=== PATIENT | female | born 1960 | race Caucasian/White ===

== ENCOUNTER → 2017-09-23 | Outpatient (POV) | payer BC, SELFPAY | PROVIDERS: Family Provider Family Medicine; PCP Family Medicine; Visit Provider Specialist | DX: R20.2 Paresthesia of skin (principal); M79.672 Pain in left foot | CPT/HCPCS: 95886; 95908 ==

== ENCOUNTER → 2017-12-17 08:42 | Outpatient (CLI) | payer BC, SELFPAY ==
[2017-12-17 09:07] LABS: Blood Urea Nitrogen 11 mg/dL (7-18); Creatinine,Serum 0.69 mg/dL (0.55-1.02); Estimated Glomerular Filt Rate 88 ml/min (>60); GFR (African American) 107 ML/MIN (>60)
--- NOTE | 2017-12-17 09:11 | CT_ITS ---
CT abdomen pelvis w con CLINICAL INDICATION: Epigastric pain, mid to lower abdominal pain, history of bowel blockage, evaluate for small bowel obstruction. Right upper quadrant pain ITS.REASON: R/O SBO,RUQ PAIN, ORDERING PHYSICIAN: Tameka Sánchez PATIENT AGE: 57 years COMPARISON: 12 17 16 TECHNIQUE: Axial images obtained with sagittal and coronal reformats. PROCEDURE: Oral Contrast: Redicat IV Contrast: 75 mL's of Isovue-370. FINDINGS: Lung bases are clear. The liver, gallbladder, adrenal glands, and pancreas have an unremarkable appearance. Lobular isodensity is present in the anterior aspect of the spleen at 1.5 x 0.6 cm similar to the previous exam. No renal mass or calculi. No intestinal obstruction or free air. History of appendectomy and hysterectomy. No focal mass or focal inflammatory change apparent. There is a mild amount retained colonic feces. No acute bony anomalies. IMPRESSION: 1. No change with no acute abdominal or pelvic findings. 2. Stable hypoattenuating lesion of the spleen. 3. Mild constipation.
== END ==
PROVIDERS: Family Provider Family Medicine; PCP Family Medicine; Visit Provider Nurse Practitioner Acute Care
DX: R10.11 Right upper quadrant pain (principal); K59.00 Constipation, unspecified
CPT/HCPCS: 36415; 74177; 82565; 84520; Q9967

== ENCOUNTER → 2018-02-21 14:01 | Outpatient (CLI) | payer BC, SELFPAY ==
--- NOTE | 2018-02-21 14:03 | MM_ITS ---
MM Dig screening mamm BI w/CAD CAD Screening COMPARISON: Digital mammograms 02/08/2016 and 03/01/2017 INDICATION: There is a history of breast cancer in a patient maternal cousin diagnosed before menopause. TECHNIQUE: Standard CC and MLO images were obtained. R2 CAD reviewed. FINDINGS: Scattered fibroglandular densities are seen in both breasts. There is a stable asymmetric density outer quadrant right breast at the 9:00 position. There is no suspicious lesion and there are no suspicious microcalcifications. IMPRESSION: Fibrofatty parenchyma with no suspicious lesion seen BI-RADS Category: 2 Benign Finding(s) RECOMMENDED FOLLOW-UP: 1YR - 1 YEAR FOLLOW-UP (A letter has been sent to the patient regarding results of the study.)
--- NOTE | 2018-02-21 14:03 | XR_ITS ---
XR DEXA axial skeleton COMPARISON: None HISTORY: Patient is postmenopausal TECHNIQUE: DEXA scanning lumbar spine and bilateral hips FINDINGS: The average BMD lumbar spine L1-L4 is 1.209 g/sq cm and the T score is 0.2. The total BMD right hip is 0.813 g centimeters square with a T score of -1.5. The right femoral neck is 0.825 g/sq cm the T score of -1.5. The T-scores for the left hip are -1.4 and -1.3 respectively. IMPRESSION: Normal value for the lumbar spine, findings in the osteopenia range for both hips. Consider follow-up study in 2 years
== END ==
PROVIDERS: Family Provider Family Medicine; PCP Family Medicine; Visit Provider Obstetrics & Gynecology
DX: Z12.31 Encounter for screening mammogram for malignant neoplasm of breast (principal); Z78.0 Asymptomatic menopausal state
CPT/HCPCS: 77067; 77080

== ENCOUNTER → 2019-02-25 08:23 | Outpatient (CLI) | payer BC, SELFPAY ==
--- NOTE | 2019-02-25 08:25 | MM_ITS ---
MM Dig screening mamm BI w/CAD CAD Screening COMPARISON: Digital mammograms with CAD 02/21/2018 and 03/01/2017 INDICATION: There is a history of breast cancer patient maternal cousin diagnosed before menopause. TECHNIQUE: Standard CC and MLO images were obtained. R2 CAD reviewed. FINDINGS: Scattered fibroglandular densities are seen in both breasts. Again noted is the asymmetric density 9:00 position right breast which is stable. There is a possible new rounded density left breast only deftly seen on MLO projection. Recommend patient return for spot compression MLO view and cc view and ultrasound may be necessary as well there are no suspicious microcalcifications. IMPRESSION: Fibrofatty parenchyma with possible new density left breast BI-RADS Category: 0 Need Additional Imaging Evaluation RECOMMENDED FOLLOW-UP: IMM - IMMEDIATE FOLLOW-UP RECOMMENDED (A letter has been sent to the patient regarding results of the study.)
== END ==
PROVIDERS: PCP Family Medicine; Visit Provider Obstetrics & Gynecology
DX: Z12.31 Encounter for screening mammogram for malignant neoplasm of breast (principal)
CPT/HCPCS: 77067

== ENCOUNTER → 2019-03-18 14:32 | Outpatient (CLI) | payer BC, SELFPAY ==
--- NOTE | 2019-03-18 14:33 | US_ITS ---
MM Dig mamm DX unilat LT CAD, US breast LT complete INDICATION: Follow-up abnormal mammogram ORDERING PHYSICIAN: Donte Nagel MD PATIENT AGE: 59 years COMPARISON: 02/25/2019 TECHNIQUE: Left mammogram problem-solving views with left breast ultrasound FINDINGS: Average fibroglandular tissue. There is some persistent nodularity noted in the left breast on the spot compression views in the retroareolar region on CC and MLO views measuring approximately 5 mm. Margins are somewhat obscured by overlying breast tissue. Left breast ultrasound: At 2:00 there is a 4 mm hypoechoic nodule with enhanced through transmission of sound. The nodule is somewhat lobulated. Additionally, there is a 7 x 4 mm hypoechoic nodule at 2:00 well with some internal echoes which may only represent an island of fibroglandular tissue. There is good through transmission of sound. No other significant anomalies are evident. IMPRESSION: Probably benign. Persistent nodular opacity in the upper outer left breast at 4 to 5 mm with a complex cyst at this area along with an additional 7 x 4 mm hypoechoic nodule noted on ultrasound which may represent an island of fibroglandular tissue. No suspicious nodules apparent. Recommend 6 month mammographic and sonographic follow-up BI-RADS Category: 3 Probably Benign Finding Short Term Follow-up RECOMMENDED FOLLOW-UP: 6M - 6 MONTH FOLLOW-UP (A letter has been sent to the patient regarding results of the study.)
== END ==
PROVIDERS: PCP Family Medicine; Visit Provider Obstetrics & Gynecology
DX: D49.3 Neoplasm of unspecified behavior of breast (principal)
CPT/HCPCS: 76641; 77065

== ENCOUNTER → 2019-10-09 12:56 | Outpatient (CLI) | payer BC, SELFPAY ==
--- NOTE | 2019-10-09 12:57 | MM_ITS ---
PROCEDURE: MM DIG MAMM DX UNILAT LT CAD CLINICAL INDICATION: abnormal mammogram, six-month follow-up COMPARISON: [facility] MM Dig screening mamm BI w/CAD from 02/21/2018 [facility] MM Dig screening mamm BI w/CAD from 02/25/2019 DIG MAMM-DX UNI-LT from 03/18/2019 TECHNIQUE: Spot-compression MLO and CC views were obtained along with a 90 degree lateral view. FINDINGS: The small asymmetric densities again seen upper outer quadrant unchanged from previous exam. Stable glandular elements are seen in the subareolar region. There is no suspicious lesion and no suspicious microcalcifications. IMPRESSION: Stable benign-appearing density likely asymmetric glandular tissue or possibly a small fibroadenoma as noted on the ultrasound exam, recommended patient return to normal yearly screening mammography BI-RAD Category: 2 Benign Finding(s) FOLLOW-UP: 6M 6Month Follow-up to return to normal yearly screening schedule (A letter has been sent to the patient regarding results of the study.) Dictated by: Dr. Richard Frye MD 10/11/2019 18:[address] Richard Frye MD in [place] 10/11/2019 18:29
--- NOTE | 2019-10-09 12:57 | US_ITS ---
PROCEDURE: US BREAST LT COMPLETE CLINICAL INDICATION: abnormal mammogram COMPARISON: BREASTLT US breast LT complete from 03/18/2019 FINDINGS: Again noted is an oval hypoechoic lesion at the 2 o'clock position outer breast measuring 0.7 by 0.8 x 0.3 cm and again showing internal echoes. This may be a small fibroadenoma, complex cyst or simply an island of glandular tissue. It is stable unchanged from the previous exam. The other smaller hypoechoic lesion at the 2 o'clock position seen near the nipple on the previous exam is not seen on today's study. There are normal appearing nodes in the axilla. IMPRESSION: Able benign-appearing hypoechoic lesion 2 o'clock position outer breast obviously wider than tall and I feel no additional evaluation is indicated and recommend the patient continue with yearly screening mammography Dictated by: Dr. Richard Frye MD 10/11/2019 18:[address] Richard Frye MD in [place] 10/11/2019 18:25
== END ==
PROVIDERS: PCP Family Medicine; Visit Provider Obstetrics & Gynecology
DX: R92.8 Other abnormal and inconclusive findings on diagnostic imaging of breast (principal)
CPT/HCPCS: 76641; 77065

== ENCOUNTER → 2020-04-14 12:12 | Outpatient (CLI) | payer BC, SELFPAY ==
[2020-04-14 13:58] LABS: Coronavirus 19 IgG Antibody Positive (Negative)
[2020-04-14 13:59] LABS: Coronavirus 19 IgM Antibody Positive (Negative)
--- NOTE | 2020-04-14 15:12 | SUR.PREOP ---
Pt. was notified of positive IGM/ IGG blood test. Per Dr. Singh pt. was cancelled for her procedure and the primary was notified. Pt. was instructed to self isolate for 10 days.
== END ==
PROVIDERS: Visit Provider Internal Medicine Gastroenterology
DX: Z01.818 Encounter for other preprocedural examination (principal)
CPT/HCPCS: 36415; 86328

== ENCOUNTER → 2020-04-21 09:00 | Outpatient (CLI) | payer BC, SELFPAY ==
--- NOTE | 2020-04-21 09:12 | XR_ITS ---
PROCEDURE: XR CHEST PORTABLE CLINICAL HISTORY: COVID TESTING COMPARISON: No exams were available for comparison FINDINGS: The cardiomediastinal silhouette and pulmonary vascularity are within normal limits. The lungs are clear without infiltrates, suspicious nodules, or pleural effusions. No acute bony abnormalities. IMPRESSION: No acute findings. Dictated by: Kannan Menon MD 04/21/2020 13:44 Electronically signed by Kannan Menon MD in [place] 04/21/2020 13:44
[2020-04-23 06:08] LABS: Covid-19 Nasal PCR Sendout Lex Not Detected
== END ==
PROVIDERS: PCP Family Medicine; Visit Provider Family Medicine
DX: Z03.818 Encounter for observation for suspected exposure to other biological agents ruled out (principal)
CPT/HCPCS: 71045; U0004

== ENCOUNTER → 2020-06-16 11:15 | Outpatient (CLI) | payer BC, SELFPAY ==
[2020-06-16 13:50] LABS: Coronavirus 19 IgG Antibody Negative (Negative)
[2020-06-16 13:52] LABS: Coronavirus 19 IgM Antibody Positive (Negative)
== END ==
LOC: LAB 11:15 → COVID.OUT 15:10
PROVIDERS: Internal Medicine Gastroenterology; PCP Family Medicine; Visit Provider Family Medicine
DX: Z01.818 Encounter for other preprocedural examination (principal); Z12.11 Encounter for screening for malignant neoplasm of colon
CPT/HCPCS: 36415; 86328; U0003

== ENCOUNTER → 2020-08-18 08:42 | Outpatient (CLI) | payer BC, SELFPAY | PROVIDERS: Visit Provider Internal Medicine Gastroenterology | DX: Z01.89 Encounter for other specified special examinations (principal); Z12.11 Encounter for screening for malignant neoplasm of colon | CPT/HCPCS: U0003 ==

== ENCOUNTER 2020-08-19 07:48 | Day surgery (SDC) | payer BC, SELFPAY ==
[2020-08-11 10:23] VITALS: BMI 23.0
[2020-08-19] VITALS (8 sets, daily range): BP systolic 92–127; BP diastolic 43–58; PULSE 57–76; RESP 16–18; TEMP 36.1–37.3; O2SAT 96–99
--- NOTE | 2020-08-19 08:34 | P.PCN_ITS ---
[facility] Procedure Note Procedure Note:: Colonoscopy Procedure Report: Colonoscopy with cold snare polypectomy Endoscopist: Arsenio Singh II, MD Referring physician: Ángel Puga MD Date of Procedure: August 19, 2020 Equipment: Olympus 180 variable stiffness pediatric colonoscope Sedation: MAC sedation Indication: Mrs. Love is a 60-year-old female who is here for follow-up screening/surveillance colonoscopy secondary to a personal history of adenomatous colon polyps. The patient did have a colonoscopy in October 2016 and had 5 colon polyps (tubular adenomas x5) removed. The patient does state that her paternal grandmother had colon cancer in her 60s. The patient has had prior small bowel obstruction secondary to intraperitoneal adhesions (presumably related to prior surgeries including appendectomy, hysterectomy and ). Her left sided abdominal tenderness has resolved since she is taking the fiber bowel regimen (MiraLAX plus Konsyl mixed together p.o. every morning) which has helped. She reports no abdominal pain, weight loss, change in her bowel habits or rectal bleeding. The patient did have a prior colonoscopy in November 2010 and had a single polyp (tubular adenoma x1) removed. Procedure: Prior to the procedure, a history and physical exam was performed, and patient's medications and allergies were reviewed. The risks, benefits and alternatives of the sedation and procedure were discussed with the patient. All questions were answered and informed consent was obtained. The patient was brought to the procedure room. Patient identification and proposed procedure were verified by the physician and the nurse. The patient was placed in a left lateral decubitus position and the scope was passed under direct vision. Throughout the procedure, the patient's blood pressure, pulse, and oxygen saturations were monitored continuously. The colonoscopy was accomplished without difficulty. The patient tolerated the procedure well. Findings: On digital rectal examination there was normal rectal tone. There were no external hemorrhoids. The colonoscope was introduced through the anal canal to the rectum and advanced to the cecum. The ileocecal valve and appendiceal orifice were identified. The scope was advanced a short distance into the ileum which appeared grossly normal. The scope was then withdrawn into the colon. The cecum, ascending and transverse colon and mucosa were grossly normal. There were 2 diminutive polyps (descending x1 (4 mm) and sigmoid x1 (3 mm)) which were removed via cold snare polypectomy. There were scattered diverticuli throughout the descending and sigmoid colon (LEFT colon). The rectum itself was normal. Upon retroflexion within the rectum there were grade 1-2 internal hemorrhoids. The preparation was excellent throughout with [place] Preparation Score of 9. The cecal time was 12 minutes. Impression: 1. Diminutive colonic polyps x2 2. Left-sided diverticulosis 3. Grade 1-2 internal hemorrhoids Plan: I will follow up the polyp pathology and recommend repeat colonoscopy again in 5-10 years based upon the polyp histology. I would encourage continuation of the fiber bowel regimen (MiraLAX plus Konsyl mixed together) on a long-term daily maintenance basis.
--- NOTE | 2020-08-19 08:37 | P.PN_ITS ---
[facility] Anesthesia Checklist - Patient Identification Patient Identification: Arm Band - Structural Data Admitted From: Home Planned Operative Procedure/s: colonoscopy Consent for Planned Operative Procedure(s) Verified: Yes Verified Documents: Surgical Consent, History and Physical - NPO Status Verified Time NPO: 00:00 - Additional verifications Anesthesia Reactions: No - Airway Assessment C-Spine Mobility Assessed: Yes (mp2) TMJ Mobility Assessed: Yes Dentition: Good Dentition - Neurological Assessment Level of Consciousness: Awake, Alert - Anesthesia Plan Anesthesia Risk discussed: Yes Anesthesia Plan: Verified ASA Class: I Anesthesia Type: MAC [facility] History I have reviewed the patient's past medical history: Yes Medical History: Denies:: Cancer, Diabetes Mellitus Type 1, Diabetes Mellitus Type 2, Internal Pacemaker, MRSA, Seizures *Have you ever received a pneumonia vaccine?: No *Have you received a flu vaccine this season?: Yes Other Medical History: Reports: Other Anesthesia experience/problems:: nac Other Surgeries: Yes: Other. No: Pacemaker Amputation: No Fractures: No - *Social History Last grade of school completed: Advanced degree Smoking Status: Former smoker Alcohol Intake: current Alcohol Intake Frequency:: a few times a month Substance Use Type: denies use *Occupational Status:: employed Housing: house *Travel in the last 8 weeks: None Family Hx:: Coronary Artery Disease, Diabetes, Hypertension
== END 2020-08-19 10:00 | disposition home or self-care (01) ==
LOC: OUTP 07:50
PROVIDERS: PCP Family Medicine; Visit Provider Internal Medicine Gastroenterology
PROC: 0DJD8ZZ Inspection of Lower Intestinal Tract, Via Natural or Artificial Opening Endoscopic (ICD-10-PCS; CPT 45378; principal; 2020-08-19 08:30)
DX: Z12.11 Encounter for screening for malignant neoplasm of colon (principal); Z86.010 Personal history of colon polyps; Z90.49 Acquired absence of other specified parts of digestive tract; K63.5 Polyp of colon; K57.30 Diverticulosis of large intestine without perforation or abscess without bleeding; K64.0 First degree hemorrhoids; Z87.891 Personal history of nicotine dependence; Z83.3 Family history of diabetes mellitus; Z82.49 Family history of ischemic heart disease and other diseases of the circulatory system; Z90.710 Acquired absence of both cervix and uterus; Z79.890 Hormone replacement therapy; Z79.899 Other long term (current) drug therapy
CPT/HCPCS: 45385

== ENCOUNTER → 2020-08-22 16:32 | Outpatient (CLI) | payer BC, SELFPAY ==
--- NOTE | 2020-08-22 16:32 | MM_ITS ---
PROCEDURE: MM DIG SCREENING MAMM BI W/CAD Digital Breast Tomosynthesis Included CLINICAL INDICATION: Routine Screening Mammogram There is a history of breast cancer patient's maternal cousin. The patient currently is on estrogen. COMPARISON: MG [facility] MM Dig screening mamm BI w/CAD from 02/25/2019 MG DIG MAMM-DX UNI-LT from 03/18/2019 MG MM DIG MAMM DX UNILAT LT CAD from 10/09/2019 TECHNIQUE: Standard CC and MLO images and 3D Tomosynthesis was obtained. R2 CAD reviewed. FINDINGS: Mild to moderate scattered fibroglandular densities are seen in both breasts and the findings are bilateral and symmetrical. The possible nodular lesion left breast seen on recent studies is not definitely seen and may have been a cyst which decompressed spontaneously. There is no new or suspicious lesion in either breast and no suspicious microcalcifications. IMPRESSION: Fibrofatty parenchyma with no suspicious lesions seen BI-RAD Category: 1 Negative FOLLOW-UP: 1YR 1 Year Follow-up (A letter has been sent to the patient regarding results of the study.) Dictated by: Dr. Richard Frye MD 08/25/2020 08:39 Dr. Richard Frye MD in [place] 08/25/2020 08:39
== END ==
PROVIDERS: PCP Family Medicine; Visit Provider Obstetrics & Gynecology
DX: Z12.31 Encounter for screening mammogram for malignant neoplasm of breast (principal)
CPT/HCPCS: 77063; 77067

== ENCOUNTER → 2021-08-25 15:58 | Outpatient (CLI) | payer BC, SELFPAY ==
--- NOTE | 2021-08-25 15:58 | MM_ITS ---
PROCEDURE INFORMATION: Exam: MG Bilateral Screening 3D Mammography Exam date and time: 08/25/2021 3:58 PM Age: 61 years old Clinical indication: Encounter for screening mammogram for malignant neoplasm of breast TECHNIQUE: Imaging protocol: Bilateral screening tomosynthesis and 2D mammography including computer-aided detection (CAD) when performed. COMPARISON: 1. MG MM DIG SCREENING MAMM BI W/CAD 08/22/2020 4:35 PM 2. MG MM DIG MAMM DX UNILAT LT CAD 10/09/2019 1:09 PM FINDINGS: MAMMOGRAPHY: Breast composition: The breast tissue is composed of scattered areas of fibroglandular density. Mass: None. Architectural distortion: None. Calcifications: No suspicious calcifications. Asymmetric density: None. Skin thickening: None. Axillary adenopathy: None. IMPRESSION: No mammographic evidence of malignancy. Annual screening is recommended unless otherwise clinically indicated. ASSESSMENT: BI-RADS Category 1: Negative
== END ==
PROVIDERS: PCP Family Medicine; Visit Provider Obstetrics & Gynecology
DX: Z12.31 Encounter for screening mammogram for malignant neoplasm of breast (principal)
CPT/HCPCS: 77063; 77067

== ENCOUNTER → 2021-08-29 12:58 | Outpatient (POV) | payer BC, SELFPAY | PROVIDERS: Visit Provider Dermatology | DX: Z00.00 Encounter for general adult medical examination without abnormal findings (principal) ==

== ENCOUNTER → 2022-09-04 13:03 | Outpatient (CLI) | payer BC, SELFPAY ==
--- NOTE | 2022-09-04 13:03 | MM_ITS ---
PROCEDURE INFORMATION: Exam: MG Bilateral Screening 3D Mammography Exam date and time: 09/04/2022 1:06 PM Age: 62 years old Clinical indication: Screening. A maternal cousin had breast cancer. TECHNIQUE: Imaging protocol: Bilateral Screening tomosynthesis and 2D mammography including computer-aided detection (CAD) when performed. COMPARISON: 1. MG MM DIG SCREENING MAMM BI W/CAD 08/25/2021 4:07 PM 2. MG MM DIG SCREENING MAMM BI W/CAD 08/22/2020 4:35 PM 3. MG MM DIG MAMM DX UNILAT LT CAD 10/09/2019 1:09 PM 4. MG DIG MAMM-DX UNI-LT 03/18/2019 2:41 PM FINDINGS: MAMMOGRAPHY: Breast composition: There are scattered areas of fibroglandular density. Mass: None. Architectural distortion: None. Calcifications: No suspicious calcifications. Asymmetric density: None. Skin thickening: None. Axillary adenopathy: None. IMPRESSION: No mammographic evidence of malignancy. Annual screening is recommended unless otherwise clinically indicated. ASSESSMENT: BI-RADS Category 1: Negative
== END ==
PROVIDERS: PCP Family Medicine; Visit Provider Obstetrics & Gynecology
DX: Z12.31 Encounter for screening mammogram for malignant neoplasm of breast (principal)
CPT/HCPCS: 77063; 77067

== ENCOUNTER → 2023-05-30 09:32 | Outpatient (POV) | payer BC, SELFPAY | PROVIDERS: Visit Provider Specialist/Technologist | DX: Z00.00 Encounter for general adult medical examination without abnormal findings (principal) ==

== ENCOUNTER → 2023-09-20 13:29 | Outpatient (CLI) | payer BC, SELFPAY ==
--- NOTE | 2023-09-20 13:29 | MM_ITS ---
PROCEDURE INFORMATION: Exam: MG Bilateral Screening 3D Mammography Exam date and time: 09/20/2023 1:17 PM Age: 63 years old Clinical indication: Screening. A maternal cousin had breast cancer. TECHNIQUE: Imaging protocol: Bilateral Screening tomosynthesis and 2D mammography including computer-aided detection (CAD) when performed. COMPARISON: 1. MG MM DIG SCREENING MAMM BI W/CAD 09/04/2022 1:06 PM 2. MG MM DIG SCREENING MAMM BI W/CAD 08/25/2021 4:07 PM 3. MG MM DIG SCREENING MAMM BI W/CAD 08/22/2020 4:35 PM 4. MG MM DIG MAMM DX UNILAT LT CAD 10/09/2019 1:09 PM FINDINGS: MAMMOGRAPHY: Breast composition: There are scattered areas of fibroglandular density. Mass: No suspicious mass. Architectural distortion: None. Calcifications: No suspicious calcifications. Asymmetric density: None. Skin thickening: None. Axillary adenopathy: None. IMPRESSION: No mammographic evidence of malignancy. Annual screening is recommended unless otherwise clinically indicated. ASSESSMENT: BI-RADS Category 1: Negative
== END ==
PROVIDERS: PCP Family Medicine; Visit Provider Obstetrics & Gynecology
DX: Z12.31 Encounter for screening mammogram for malignant neoplasm of breast (principal)
CPT/HCPCS: 77063; 77067

== ENCOUNTER 2024-11-03 07:52 | Outpatient (CLI) | payer BC, SELFPAY ==
--- NOTE | 2024-11-03 07:53 | MM_ITS ---
PROCEDURE INFORMATION: Exam: MG Bilateral Screening 3D Mammography Exam date and time: 11/03/2024 7:40 AM Age: 64 years old Clinical indication: Screening mammogram TECHNIQUE: Imaging protocol: Bilateral Screening tomosynthesis and 2D mammography including computer-aided detection (CAD) when performed. COMPARISON: 1. MG MM DIG SCREENING MAMM BI W/CAD 09/20/2023 1:17 PM 2. MG MM DIG SCREENING MAMM BI W/CAD 09/04/2022 1:06 PM 3. MG MM DIG SCREENING MAMM BI W/CAD 08/25/2021 4:07 PM 4. MG MM DIG SCREENING MAMM BI W/CAD 08/22/2020 4:35 PM FINDINGS: MAMMOGRAPHY: Breast composition: There are scattered areas of fibroglandular density. Mass: None. Architectural distortion: No new or suspicious architectural distortion. Calcifications: No new or suspicious calcifications are present Asymmetric density: No new or suspicious asymmetric density is present Skin thickening: None. Axillary adenopathy: None. IMPRESSION: No mammographic evidence of malignancy. Recommend annual screening mammography unless otherwise clinically indicated. ASSESSMENT: BI-RADS category 1: Negative.
--- NOTE | 2024-11-03 07:53 | XR_ITS ---
FINAL REPORT TECHNIQUE: Bone densitometry calculations of the lumbar spine and left hip were obtained. CLINICAL HISTORY: Screening Bone Density FINDINGS: Using L1-4, the bone mineral density of the spine is 0.884 g/cm2, corresponding to T-score of -1.5. Using the left hip, the bone mineral density of the femoral neck is 0.656 g/cm2, corresponding to a T-score of -2.3. Using the right hip, the bone mineral density of the femoral neck is 0.687 g/cm2, corresponding to a T-score of -2.1. NOTE: T-score: Standard deviation compared with peak bone mass of young adult mean. *Following the recommendations of the International Society of Bone densitometry, classification of hip BMD is based on the lower of two T-scores; total hip or femoral neck. IMPRESSION: Diminished bone mineral density of the lumbar spine and both hips consistent with osteopenia. FRAX data reports 9.5% for major osteoporotic fracture and 1.1% for hip fracture. Reviewed, Interpreted and Dictated by Rianna Schwartz MD Transcribed by Sheila Marshall Authenticated and [facility]
== END 2024-11-03 23:59 | disposition home or self-care (01) ==
LOC: RAD 07:53
PROVIDERS: PCP Family Medicine; Visit Provider Obstetrics & Gynecology
DX: Z12.31 Encounter for screening mammogram for malignant neoplasm of breast (principal); Z01.89 Encounter for other specified special examinations; Z79.899 Other long term (current) drug therapy; Z13.820 Encounter for screening for osteoporosis
CPT/HCPCS: 77063; 77067; 77080

== ENCOUNTER 2025-03-18 06:44 | Outpatient (CLI) | payer BC, SELFPAY ==
--- OUTSIDE RECORDS SUMMARY | 2025-03-18 06:47 | XMS_ITS | Data Portability ---
Author Organization [facility] Address [address] [facility] [place] [address] Assessment Encounter Date Assessment Date Assessment LastModified by Organization Details LastModified Time 11/21/2017 11/21/2017 Mrs. Love is a 57-year-old female with a significant left L5-S1 disc herniation. Although it is a bit odd that she does not have significant radicular pain I feel that this is likely the cause of her left foot sensory changes. It is difficult to know whether a decompression would offer relief of her current lumbar visit follow-up will symptoms. I encouraged her to continue conservative management if this is tolerable. An option would be to perform a left L5-S1 epidural steroid injection to see if she got any symptomatic relief. She can call our office at any time for referral to Dr. Davenport. If she developed radicular pain a decompressive surgery would be an option. I returned her disc containing the MRI of the lumbar spine to her. She will call us as needed. She understands if she has any further questions or concerns we are here to help. [email or web address] Not available 11/21/2017 15:17:51 Plan of Treatment Reminders Order Date Submit Date Provider Last Modified By Organization Details Last Modified Time Details Appointments None record ed. Lab None record ed. Referral None record ed. Procedures None record ed. Surgeries None record ed. Imaging None record ed. Medication Orders None record ed. Patient TargetsNo targets recorded. Patient InstructionsNo instructions recorded. Reason for Referral None Reported. Results Created Date Observation Date Name Description Value Unit Range Abnormal Flag Note LastModifiedBy Organization Detail LastModifiedTime 11/06/20 17 10/09/2017 MRI, lumba r spine , w/o contr ast No observ ation record ed. [facility] Not Available 2016 09:40:34 11/06/20 17 09/23/2017 nerve condu ction study /EMG, lower extre mity (PROC ) No observ ation record ed. BARCODE Not Available 2016 09:40:34 Result Notes None recorded. Procedures Surgical History Date Name Laterality Status Provider Name and Address Organization Details Recorded Time 7 Total Colectomy completed [place] Boswell [facility] 11/21/2017 14:54:50 5 Hyste[facility] evise [facility] [facility] 14:55:13 Imaging Results Imaging Date Name Status LastModified by Organiz ation Details LastModified Time 10/09/2017 MRI, lumbar spine, w/o contrast completed [facility] Information not available 11/06/2017 09:40:34 09/23/2017 nerve conduction study/EMG, lower extremity (PROC) completed [facility] Information not available 11/06/2017 09:40:34 Procedure Notes None recorded. Medical Equipment None Reported. Allergies No known drug allergies Medications Name Sig Start Date Stop Date Status Note LastModified by Organization Details LastModified Time Multiple Vitamin capsule Daily active Duration: 30 days;Freque ncy: daily;Medic ation Description : multivitami n; Dosage:1; Route:oral; refills:3; Quantity:10 0 capsule Not Available Not Available Not Available methylpredn isolone 4 mg tablets in a dose pack active Not Available Not Available Not Available Vivelle-Dot active Medicati on Description : estradiol; Route:trans dermal; refills:0 Not Available Not Available Not Available Minivelle 0.05 mg/24 hr transdermal patch active Not Available Not Available Not Available Vitals Date Recorded Body height Body mass index (BMI) Body weight Heart rate Systolic blood pressure Diastolic blood pressure Provider Name and Address Organization Details Last Updated DateTime 8 160.02 cm 23.2 kg/m2 05287.6 g 52 /min 120 mm[Hg] 48 mm[Hg] [place] Boswell [facility] 8 14:46:45 Social History Question Answer Notes LastModified by Organizat ion Details LastModified Time Tobacco Smoking Status Former Smoker Dilma Hallowell [facility] 11/21/2017 14:54:27 What Was The Date Of Your Most Recent Tobacco Screening? 11/21/2017 Information n ot available 12/29/2019 Sex: Unknown Functional Status None recorded. Mental Status None recorded. Family History Relationship Description Onset Age of this Age Resolved Age Notes LastModified by Organization Details LastModified Time Unspecified Relation Family history of Hypertension [email or web address] Not available 09/2018 14:50:47 Unspecified Relation Family history of stroke [email or web address] Not available 2017 14:51:13 Unspecified Relation Family history of heart failure [email or web address] Not available 2017 14:52:04 Medical History Condition Response TENS Unit for current problem N Traction for current problem N Massage Therapy for current problem N Other N Gout N Neuro-modulating Drugs for current probl em N Hyperthyroidism N Narcotic Pain Medication for current pro blem N Emphysema N Black Lung N Steroid Pack for current problem N COPD N NSAID Use N Hypothyroidism N Injections for current problem N Osteoporosis/Osteopenia N Heart Attack ([place]) N Deep Vein Thrombosis N Mental Illness N Diabetes N Bleeding Disorder N Arthritis N Tuberculosis N Genetic Disorder N AIDS/HIV N Kidney Failure N Chiropractor treatment for current probl em N Cancer N Stroke N Ultrasound Treatment for current problem N Asthma N Epilepsy/Seizures N Sleep Apnea N High Cholesterol N Thyroid Disorder N Physical Therapy Treatments for current problem N Liver Disease N Pulmonary Embolism N Fibromyalgia N Dialysis N Hypertension N Kidney Disease N Gynecological HistoryNo gynecological history recorded. Obstetrics History GPAL:G 0 P 0 0 0 0 Past Encounters Encounter ID Performer Location Encounter Start Date Encounter Closed Date Diagnosis/Indication Diagnosis SNOMED-CT Code Diagnosis ICD10 Code Diagnosis Note [id number] MAJOR BANKS MD [facility] [address] [place] [address] 11/21/2017 14:19:35 11/21/2017 15:27:37 Lumbar radiculopathy 244016310 M54.16 Health Concerns Section Related Observation LastModified by Organization Detai ls LastModified Time None Recorded Concern Status LastModified by Organization Details LastModified Time None Recorded Advance Directives Directive None Recorded Payers Insurance Date Sequence Insurance Name Policy Number Policy Espinal Covered Member ID Espinal Member ID Guarantor Name 10/05/2020 1 PRITESH: [employer] [place] [employer] [place] [id number] Isabelle Love [id number] Isabelle Love Notes Date Note Type Note Provider Name and Address Organization Details Recorded Time 11/21/2017 text/html Mrs. Perez is a 57-year-old female with approximately 8-9 months of left foot tingling. She denies significant pain. The tingling is more significant with sitting. She denies weakness or any loss of bowel or bladder control. She trialed a steroid pack but has not done any therapy for this issue. She weight lifts and works out regularly. [facility] 11/21/2017 15:27:10 OBGyn Episode No OBEpisode recorded.
[2025-03-18 07:46] LABS: Calcium 10.1 mg/dl (8.4-10.2)
== END 2025-03-18 23:59 | disposition home or self-care (01) ==
LOC: LAB 06:45
PROVIDERS: PCP Family Medicine; Visit Provider Obstetrics & Gynecology
DX: N95.1 Menopausal and female climacteric states (principal); Z79.890 Hormone replacement therapy
CPT/HCPCS: 36415; 82310; 82652